=== PATIENT | male | born 1955 ===

== ENCOUNTER 2021-06-08 09:01 | Emergency (ER) | payer SELFPAY ==
[2021-06-08 09:27] VITALS: BP 130/84
[2021-06-08 11:05] LABS: Bilirubin,Urine NEG (Negative); Blood,Urine NEG (Negative); Color,Urine Yellow (Yellow); Mucus,Urine FEW /HPF; Protein,Urine <15 mg/dL mg/dL (Negative); Urobilinogen,Urine < 2.0 mg/dL (<2.0)
== END 2021-06-08 10:00 ==
LOC: ED 09:01
DX: R10.2 Pelvic and perineal pain (principal); Z53.21 Procedure and treatment not carried out due to patient leaving prior to being seen by health care provider
CPT/HCPCS: 81001